=== PATIENT | female | born 1930 | race Caucasian/White ===

== ENCOUNTER → 2016-06-05 | Outpatient (CLI) | payer MEDICARE ==
--- NOTE | 2016-06-06 09:40 | MM ---
Reason for exam: screening (asymptomatic). Last mammogram was performed 2 years and 9 months ago. History: Patient is postmenopausal and history of other cancer. Family history of breast cancer in maternal cousin at age 60. Took estrogen for 29 years. Physical Findings: A clinical breast exam by your physician is recommended on an annual basis and results should be correlated with mammographic findings. MG 3D Screening Mammo W/Cad Bilateral CC and MLO view(s) were taken. Prior study comparison: September 03, 2013, bilateral digital screening mammo w/CAD. December 08, 2012, right diagnostic mammogram w/CAD. There are scattered fibroglandular densities. Finding: There are typically benign round calcifications. There is no discrete abnormality. No significant changes in finding since September 03, 2013 and December 08, 2012. ASSESSMENT: Benign, BI-RAD 2 RECOMMENDATION: Routine screening mammogram of both breasts in 1 year.
== END | disposition home or self-care (01) ==
LOC: RADMAMWWP 09:25
PROVIDERS: ATTEND Internal Medicine
DX: Z12.31 Encounter for screening mammogram for malignant neoplasm of breast (principal)
CPT/HCPCS: 77063; G0202

== ENCOUNTER → 2017-03-10 | Outpatient (CLI) | payer MEDICARE ==
--- NOTE | 2017-03-10 10:35 | US ---
EXAMINATION TYPE: US abdomen complete DATE OF EXAM: 03/10/2017 COMPARISON: CLINICAL HISTORY: R10.9 Unspecified abdominal pain. Constipation to Diarrhea EXAM MEASUREMENTS: Liver Length: 12.6 cm Gallbladder Wall: 0.2 cm CBD: 0.4 cm CHD: 0.5 cm Spleen: 7.6 cm Right Kidney: 10.3x 4.2 x 4.2 cm Left Kidney: 10.2 x 5.0 x 4.4 cm Pancreas: Unremarkable with pancreatic duct measuring 2 mm. Liver: wnl Gallbladder: Multiple mobile echogenic foci with shadowing Evidence for sonographic Persaud's sign: neg CBD: wnl CHD: wnl Spleen: wnl Right Kidney: wnl Left Kidney: wnl Upper IVC: wnl Abd Aorta: No AAA identified The liver is homogenous. The intrahepatic portion of the IVC and proximal abdominal aorta are within normal limits. Common bile duct is unremarkable. The visualized portions of the pancreas are homog enous. The spleen is unremarkable. Kidneys are symmetric and free of hydronephrosis. No renal lesi ons are seen. IMPRESSION: Cholelithiasis without sonographic evidence of cholelithiasis.
== END | disposition home or self-care (01) ==
LOC: RADUSWWP 09:11
PROVIDERS: ATTEND Internal Medicine
DX: R10.9 Unspecified abdominal pain (principal)
CPT/HCPCS: 76700

== ENCOUNTER → 2018-06-12 | Outpatient (CLI) | payer MEDICARE ==
--- NOTE | 2018-06-12 11:20 | FL ---
ESOPHOGRAM. HISTORY: Dysphagia Esophagram was performed per the air contrast technique. The patient swallowed barium and effervesce nt crystals without difficulty or delay. Esophageal peristalsis and motility appear to be within normal limits. There is no evidence for filling defect, mass or diverticulum. Small reducible sliding type hiatal hernia. Subsequently single contrast cervical esophagram was performed which fails demonstrate evidence for a spiration penetration or mass. IMPRESSION: Small reducible sliding type hiatal hernia.
== END ==
LOC: RADFLWHC 09:42
PROVIDERS: ATTEND Internal Medicine
DX: K44.9 Diaphragmatic hernia without obstruction or gangrene (principal)
CPT/HCPCS: 74210

== ENCOUNTER → 2021-03-14 | Outpatient (CLI) | payer MEDICARE ==
--- NOTE | 2021-03-14 15:11 | US ---
EXAMINATION TYPE: US thyroid st tissue head/neck DATE OF EXAM: 03/14/2021 COMPARISON: NONE CLINICAL HISTORY: E03.9 Hypothyroidism. Pt states abnormal thyroid labs GLAND SIZE: Right Lobe: 3.5 x 1.5 x 1.1 cm Overall Parenchyma: homogenous Left Lobe: 3.0 x 1.2 x 0.9 cm Overall Parenchyma: homogeneous Isthmus Thickness: 0.2 cm NODULES RIGHT: # of nodules measured on right: 1 1. 0.4 X 0.4 x 0.4 cm, mid, cystic or almost completely cystic, anechoic nodule, which is wider cholo n tall, with smooth margins, without echogenic foci. Prior size: No prior LEFT: # of nodules measured on left: 1 1. 0.4 X 0.3 x 0.4 cm, lower, solid or almost completely solid, hypoechoic nodule, which is wider t champagne tall, with smooth margins, without echogenic foci. TR 4 moderately suspicious. Prior size: No prior Bilateral neck scanned, no evidence of lymphadenopathy. Small, sub-centimeter nodules, 1 on each lobe . IMPRESSION: Moderately suspicious subcentimeter nodule left lobe thyroid 2017 ACR TI-RADS LEVEL: TR-RADS 4 - Moderately Suspicious: Follow if > 1 cm, FNA if > 1.5 cm *Highest TI-RADS level nodule reported
== END | disposition home or self-care (01) ==
LOC: RADUSWWP 14:13
PROVIDERS: ATTEND Family Medicine
DX: E04.1 Nontoxic single thyroid nodule (principal)
CPT/HCPCS: 76536

== ENCOUNTER → 2021-05-01 | Outpatient (CLI) | payer MEDICARE ==
[2021-05-01 16:12] LABS: HCT 40.6 % (34.0-46.0); HGB 13.2 gm/dL (11.4-16.0); MCH 30.9 pg (25.0-35.0); MCHC 32.5 g/dL (31.0-37.0); MCV 95.3 fL (80.0-100.0); Mean Platelet Volume 7.5; Platelet Count 201 k/uL (150-450); RBC 4.26 m/uL (3.80-5.40); RDW 12.9 % (11.5-15.5); WBC 4.8 k/uL (3.8-10.6)
== END | disposition home or self-care (01) ==
LOC: LABPAT 15:20
PROVIDERS: ATTEND Internal Medicine Cardiovascular Disease
DX: Z01.812 Encounter for preprocedural laboratory examination (principal); R07.9 Chest pain, unspecified
CPT/HCPCS: 36415; 80051; 82565; 84520; 85027

== ENCOUNTER 2021-05-08 05:54 | Day surgery (SDC) | payer MEDICARE ==
[2021-05-04 12:09] VITALS: BMI 25.7
[2021-05-08] MEDS ORDERED: HEPARIN SODIUM,PORCINE 10,000 UNIT in SODIUM CHLORIDE 0.9% 1,000 ML IRRIGATION PRN (05:57)
[2021-05-08] MEDS ORDERED: ALPRAZolam 0.5 MG TAB PO PRN (05:57)
[2021-05-08] MEDS ORDERED: HEPARIN SODIUM,PORCINE 2,500 UNIT in SODIUM CHLORIDE 0.9% 250 ML IRRIGATION PRN (05:57)
[2021-05-08] MEDS ORDERED: ASPIRIN 325 MG TAB PO STA (05:57)
[2021-05-08] MEDS ORDERED: ALPRAZolam 0.25 MG TAB PO PRN (05:57)
[2021-05-08] MEDS ORDERED: SODIUM CHLORIDE 0.9% 1,000 ML in EMPTY BAG 1 BAG IV SCH (05:57)
[2021-05-08] MEDS ORDERED: NITROGLYCERIN SL TABS 0.4 MG TAB SUBLINGUAL PRN (05:57)
[2021-05-08] MEDS ORDERED: SODIUM CHLORIDE 0.9% 1,000 ML IV ONE (06:08)
[2021-05-08 07:28] VITALS: RESP 16; TEMP 98.2
[2021-05-08] MEDS ORDERED: HEPARIN SODIUM 1,000 UN/ML (10ML VL) ONE (07:43)
[2021-05-08] MEDS ORDERED: MIDAZOLAM 2 MG/2 ML VIAL IV ONE (07:47)
[2021-05-08] MEDS ORDERED: fentaNYL (PF) 50 MCG/ML 5 ML AMP IV ONE (07:48)
[2021-05-08] MEDS ORDERED: LIDOCAINE 1% INJ 10MG/ML (20 ML MDV) SQ ONE (07:50)
[2021-05-08] MEDS ORDERED: VERAPAMIL SYRINGE (5 MG/10 ML) INTRAARTER ONE (07:53)
[2021-05-08] MEDS ORDERED: HEPARIN SODIUM 1,000 UN/ML (10ML VL) IV ONE (07:55)
[2021-05-08] MEDS ORDERED: IOPAMIDOL-370 125ML BTL INJ ONE (08:08)
[2021-05-08] MEDS ORDERED: RX INFO: IV CONTRAST WAS GIVEN 1 EACH MISC MISCELLANE PRN (08:13)
[2021-05-08] MEDS ORDERED: SODIUM CHLORIDE 0.9% 1,000 ML IV SCH (08:15)
--- NOTE | 2021-05-08 08:20 | P.CARDCATH ---
Date of Procedure: 05/08/21 Preoperative Diagnosis: Crescendo angina Postoperative Diagnosis: Mild coronary artery disease Procedure(s) Performed: Left heart catheterization without left ventriculography Description of Procedure: HISTORY: This is a 89-year-old female with history of hypertension and hypercholesterolemia who is been experiencing recurrent the left arm pain relieved with nitroglycerin suggestive of crescendo angina. Patient is advised to have a cardiac catheterization for definitive diagnosis. Patient and family were explained the risks and benefits of the procedure which they fully understood and accepted. CONSENT:I have discussed the risks, benefits and alternative therapies for the above-mentioned procedure and for both sedation/analgesia as well as necessary blood product administration, if indicated, as they pertain to this patient. The patient has indicated understanding and acceptance of the risks and procedures discussed. PROCEDURE: Patient was brought to the lab in a fasting state. Patient was given some IV sedation. The right wrist is infiltrated with lidocaine and right radial artery was entered using Seldinger technique. A 6-[place] catheter was left in place and selective coronary arteriography was performed. Patient tolerated the procedure well. TR band was performed and Angio-Seal was applied for hemostasis. No immediate complications were noted and patient was transferred to [facility] in a stable condition Conscious Sedation: Versed 0.5 mg Fentanyl : 12.5 g Duration : 21 minutes HEMODYNAMICS: The aortic pressure was about 120/70. The left ventricular end- diastolic pressure was 15. No gradient across the aortic valve SELECTIVE CORONARY ARTERIOGRAPHY: LEFT MAIN: Normal length with mild plaque without any critical lesions THE LEFT ANTERIOR DESCENDING CORONARY ARTERY: This is a good caliber vessel wrapping around the apex. Shows mild ectatic changes and intimal plaque in the proximal and midportion without any significant focal lesions THE LEFT CIRCUMFLEX AND IS CORONARY ARTERY: Small and nondominant vessel free of any significant occlusive disease THE RIGHT CORONARY ARTERY: . Dominant vessel giving rise to good-sized PDA and PLV. Diffuse ectatic changes with intimal plaque involving the proximal mid and distal portions LEFT VENTRICULOGRAPHY: Not performed FINAL IMPRESSION: . Diffuse coronary artery disease with ectasia and mild inferolateral plaque. No critical lesions PLAN: Maximum medical therapy and this factor modification PROGNOSIS: Good
[2021-05-08] MEDS ORDERED: atenoloL 50 MG TAB PO SCH (09:00)
[2021-05-08] MEDS ORDERED: ISOSORBIDE MONONITRATE ER 60 MG TAB.ER.24H PO SCH (09:00)
[2021-05-08 11:41] VITALS: PULSE 56
[2021-05-08 15:15] VITALS: BP 156/68
== END 2021-05-08 13:38 | disposition home or self-care (01) ==
LOC: CATHCVL 05:54
PROVIDERS: ATTEND Internal Medicine Cardiovascular Disease
DX: I25.110 Atherosclerotic heart disease of native coronary artery with unstable angina pectoris (principal); I25.41 Coronary artery aneurysm; I10 Essential (primary) hypertension; E78.5 Hyperlipidemia, unspecified; E78.00 Pure hypercholesterolemia, unspecified; Z72.0 Tobacco use; Z79.82 Long term (current) use of aspirin; Z79.890 Hormone replacement therapy; Z79.899 Other long term (current) drug therapy; Z88.8 Allergy status to other drugs, medicaments and biological substances; Z88.2 Allergy status to sulfonamides; Z20.822 Contact with and (suspected) exposure to COVID-19
CPT/HCPCS: 93458; 87635; C1894; C1769; J2250; J2001; J3010; J1644; Q9967

== ENCOUNTER → 2021-05-31 | Outpatient (CLI) | payer MEDICARE ==
[2021-06-01 00:20] LABS: T4, Free (Free Thyroxine) 1.12 ng/dL (0.800-1.800)
== END | disposition home or self-care (01) ==
LOC: LABWHC1 14:22
PROVIDERS: ATTEND Internal Medicine Endocrinology, Diabetes & Metabolism
DX: E04.2 Nontoxic multinodular goiter (principal)
CPT/HCPCS: 36415; 84439; 84443